=== PATIENT | male | born 1995 | race Caucasian/White ===

== ENCOUNTER 2019-01-23 01:33 | Emergency (ER) | payer SELFPAY ==
[2019-01-23] MEDS ORDERED: Adacel (T-DAP) 0.5 ML SYRINGE ONE (01:42)
--- NOTE | 2019-01-23 08:49 | RAD ---
RIGHT FOOT 3 VIEWS: HISTORY: Injury, laceration, pain. FINDINGS/IMPRESSION: No fracture, dislocation, opaque foreign body, or other significant acute process. POS: [facility]
== END 2019-01-23 02:07 | disposition home or self-care (01) ==
LOC: ERS 01:33
DX: S91.111A Laceration without foreign body of right great toe without damage to nail, initial encounter (principal); W26.8XXA Contact with other sharp object(s), not elsewhere classified, initial encounter
CPT/HCPCS: 90471; 90715

== ENCOUNTER 2021-06-24 21:17 | Emergency (ER) | payer BC, SELFPAY ==
[2021-06-24] MEDS ORDERED: Ondansetron ODT 4 MG TAB ONE (21:48)
[2021-06-24] MEDS ORDERED: Promethazine HCl 25 MG/ML VIAL ONE (22:45)
[2021-06-25 12:29] LABS: SARS-CoV-2 PCR by NAA Not Detected (NotDetected)
== END 2021-06-25 01:50 | disposition home or self-care (01) ==
LOC: ERS 21:17
DX: K52.9 Noninfective gastroenteritis and colitis, unspecified (principal); Z20.822 Contact with and (suspected) exposure to COVID-19; K21.9 Gastro-esophageal reflux disease without esophagitis
CPT/HCPCS: 87804; 96374; J2550; Q0162; U0003; U0005